=== PATIENT | female | born 1995 | race Caucasian/White ===

== ENCOUNTER → 2020-12-14 10:55 | Outpatient (CLI) | payer OTHER, SELFPAY ==
--- NOTE | ~2020-12-14 | MR_ITS ---
EXAMINATION: MR knee LT wo con DATE: 12/14/2020 11:43 INDICATION: Generalized left knee pain, swelling and clicking. TECHNIQUE: Magnetic resonance imaging (MRI) of the left knee was performed without intravenous contra st. Sequences included coronal PD-weighted FSE, coronal PD-weighted FS FSE, sagittal T2-weighted FSE , sagittal PD-weighted FS FSE and axial PD weighted fat saturated FSE. COMPARISON: Knee radiographs dated 10/25/2020 FINDINGS: Medial compartment: Medial meniscus is normal. Articular cartilage is normal. Lateral compartment: Lateral meniscus is normal. Deep chondral fissuring with underlying mild cortical irregularity and mi nimal subarticular edema at the axillary anterior to central weightbearing lateral femoral condyle. Patellofemoral compartment: Small region of deep chondral ulceration with underlying subarticular edema at the superolateral leon in of the lateral trochlea. Partial-thickness chondral fissuring with additional minimal subarticular edema along the inferior rim of the lateral patellar facet. Ligaments and tendons: Anterior and posterior cruciate ligaments are normal. The medial collateral ligament and fibular susana ateral ligament complex are normal. The extensor mechanism is normal. The visualized medial and later al hamstring tendons as well as the iliotibial band are normal. Fluid: Physiologic amount of fluid in the joint space. No loose osteochondral bodies identified. Small Maddox 's cyst. Osseous/other: Normal marrow signal aside from a previous noted small regions of mild degenerative subchondral stern es. No fracture or pathologic marrow replacing process. There is scarring at the medial and lateral a spects of Hoffa's fat pad suggesting prior arthroscopy. There is scarring of indeterminate etiology a t the patellar side of the lateral patellofemoral retinaculum which appears focally thickened without increased signal or edema to suggest acute injury. IMPRESSION: 1. 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 Reviewed, dictated and finalized at location A. IMPRESSION: 1. Mild osteoarthritis with small regions of high-grade chondromalacia in the l ateral and patellofemoral compartments.
== END ==
PROVIDERS: Visit Provider Orthopaedic Surgery
DX: M25.562 Pain in left knee (principal); M17.12 Unilateral primary osteoarthritis, left knee; M94.262 Chondromalacia, left knee
CPT/HCPCS: 73721

== ENCOUNTER 2021-01-09 02:22 | Day surgery (SDC) | payer OTHER, SELFPAY ==
[2021-01-06 13:27] VITALS: BMI 23.6
--- NOTE | 2021-01-06 15:53 | WPDANESEPPF ---
Anes - Initial Pre Proc Eval Procedure: Operation Date: 01/09/21 07:30 Proposed Procedures p Left Knee Arthroscopy, Partial Knee Synovectomy - Odin Herrera MD Date/Time: 01/06/21 15:53 Surgeon: Odin Herrera MD Pre Op Diagnosis: left anterior knee impingement Patient Data Age: 25 Gender: F Height: 1.75 m Weight: 72.6 kg Allergies Allergy/AdvReac Type Severity Reaction Status Date / Time No Known Allergies Allergy Verified 01/09/21 06:27 Home Medications Medication Instructions Recorded Confirmed Type No Home Medications 01/06/21 01/06/21 History Patient hx anesthesia problems: none Family hx anesthesia problems: none PMFSH Surgical History Surgical History H/O arthroscopy of left knee left knee, June 2018, Dr. Herrera Family History Family History Father Diabetes mellitus Hypertension Social History Social History Smoking status: Never smoker Alcohol intake: current Alcohol use details: ONE DRINK PER MONTH Living arrangements: with family Additional occupation/education comments: [employer], pharmacy Gender identity (if verbalized by the patient): Female Spiritual care concerns: No Anes - Eval Final PreProcedure Day of Procedure 01/06/21 15:53 Patient weight: normal Heart: regular rate and rhythm Lungs: clear to auscultation and normal air movement Airway: Mallampati scale class II Neurological: alert and oriented Last oral intake: >/= 8 hours ASA classification: II Emergent: no Anesthetic plan: proceed Anesthesia type and monitoring: general LMA and standard monitoring Informed Consent: The patient's anesthetic plan and its attendant risks and benefits were discussed with the patient/family/POA. Questions were solicited and answers provided to the satisfaction of the patient/family/POA.
[2021-01-09] VITALS (9 sets, daily range): BP systolic 106–122; BP diastolic 61–78; PULSE 70–98; RESP 12–20; TEMP 36.7–36.9; O2SAT 99–100
[2021-01-09] MEDS: ACETAMINOPHEN 500 MG TABLET 1000 MG PO (06:41)
[2021-01-09] MEDS: LACTATED RINGERS 1,000 ML 30 ML IV CONT (06:47)
[2021-01-09] MEDS: KETOROLAC 15 MG/ML VIAL (*BKC) IV PUSH (07:04)
--- NOTE | 2021-01-09 07:20 | WPDHPUPDATE1 ---
History and Physical Update Update Date/Time: 01/09/21 07:20 History and Physical has been reviewed, including an updated exam of the patient. There are NO changes in the patient's condition. Risks, benefits, and alternatives have been discussed and questions answered. Patient agrees to proceed with procedure.
[2021-01-09] MEDS: ceFAZolin 2 GM/D5W 50 ML 2 GM/50 ML BAG IVPB (07:24)
[2021-01-09] MEDS: TRANEXAMIC ACID 1,000 MG/10 ML AMPUL 1000 MG TOPICAL (08:20)
--- NOTE | 2021-01-09 08:40 | W.PM.PROC2 ---
Procedure Note - Detailed Date of Procedure 01/09/21 Pre-op Diagnosis left anterior knee impingement Post-op Diagnosis same Procedure Performed Left knee arthroscopy with extensive synovectomy and scar tissue debridement Surgeon Odin Herrera MD Indications See H&P Description of Procedure The patient was identified and proper site identified. She was taken to the operating room and transferred to the OR table placing her supine taking care to pad the torso and extremities. After general anesthetic induction and intubation, a nonsterile tourniquet was placed high on the left thigh but was not use. The left lower extremity was positioned, prepped and draped in usual sterile fashion. 10 cc of 1% lidocaine was injected into the subcutaneous tissue in the area of the portals at start of the procedure, and an additional 10 at the end. The portals were established and the arthroscopy was carried out. The gutters and pouch were clear. Medial and lateral compartments showed excellent condition of meniscal and articular cartilage. Anterior posterior cruciate ligaments were in continuity. Undersurface of the patella had extensive grade 3 changes particularly distally. There is a little bit of fraying in the femoral trochlea. There was a large rind of scar tissue at the inferolateral aspect of the patella corresponding to where her symptoms were. There is also an abraded area in the soft tissue at the proximal-most aspect of left side of the femoral trochlea. All of the scar tissue and redundant synovium in those areas was debrided with a shaver and then ArthroCare Wand used for hemostasis. The knee was flushed with a copious amount of arthroscopic fluid and equipment was removed. The knee was injected intra-articularly with 1 gram of tranexamic acid. Portals were closed with three O nylon suture and a sterile dressing was applied. She tolerated the procedure well, was awakened, extubated and taken to recovery area in stable condition. There were no known intraoperative complications. Estimated blood loss was negligible. She received perioperative antibiotics. Tourniquet Time 0 Drains No Packing No Pathology none sent Complications No immediate complications Condition stable Disposition PACU
[2021-01-09] MEDS: oxyCODONE HCL (*CRX) 5 MG TAB IR PO (09:42)
== END 2021-01-09 10:14 | disposition home or self-care (01) ==
PROVIDERS: Visit Provider Orthopaedic Surgery
PROC: (CPT 29870; principal; 2021-01-09 07:30)
DX: M25.862 Other specified joint disorders, left knee (principal)
CPT/HCPCS: 29877; A9270; J0690; J1100; J1885; J2250; J2405; J2704; J3010; J7120

== ENCOUNTER 2021-08-04 13:05 | Outpatient (CLI) | payer BC, SELFPAY ==
--- NOTE | ~2021-08-04 | MR_ITS ---
EXAMINATION: MR knee LT w con DATE: 08/04/2021 14:30 INDICATION: Left knee pain TECHNIQUE: Magnetic resonance imaging (MRI) arthrogram of the left knee was performed with intra-cooper cular but without intravenous contrast. Details of the intra-articular contrast injection have been d ictated separately. Sequences included coronal T1-weighted FS FSE, coronal PD-weighted FS FSE, sagitt al T2-weighted FSE, sagittal T1-weighted FS FSE, sagittal PD-weighted FSE, axial T1-weighted FS FSE a nd axial PD weighted fat saturated FSE. COMPARISON: Left knee radiographs dated 07/24/2021 FINDINGS: Medial compartment: Medial meniscus is normal. Articular cartilage is normal. Lateral compartment: Lateral meniscus is normal. Small region of deep chondral fissuring with subtle underlying cortical i rregularity with minimal edema-like subarticular marrow signal change at the junction of the anterior to central weightbearing lateral femoral condyle. Remaining articular cartilage is normal. Patellofemoral compartment: There is a partial-thickness chondral flap tear arising along the articular surface at the central po rtion of the medial patellar facet. The tear plane extends 12 mm craniocaudally and propagates 6-7 mm peripherally towards the medial margin of the medial patellar facet. The chondral flap involves appr oximately one third of the cartilage thickness. Trochlear cartilage is normal. Ligaments and tendons: Anterior and posterior cruciate ligaments are normal. The medial collateral ligament and fibular susana ateral ligament complex are normal. The extensor mechanism is normal. The visualized medial and later al hamstring tendons as well as the iliotibial band are normal. Fluid: No loose osteochondral bodies identified. Contrast extends into a small Maddox's cyst which measures 4 .4 cm craniocaudally and 2.0 x 1.1 cm in maximal orthogonal dimensions. There is a small amount of co ntrast in the deep suprapatellar fat pad likely representing small amount extra articular extravasati on at the site of the injection. Osseous/other: Approximately 1.2 cm lateral patellar subluxation. Couple small low signal intensity bone islands at the lateral condylar and lateral supra trochlear distal femur. No fracture or pathologic marrow repla cing process. IMPRESSION: 1. 12 x 6 mm partial-thickness chondral flap involving approximately one third of the cartilage thick ness at the medial patellar facet. 2. Additional small region of high-grade chondromalacia at the junction of the anterior to central we ightbearing lateral femoral condyle. 3. Small Maddox's cyst. Reviewed, dictated and finalized at location B. IMPRESSION: 1. 12 x 6 mm partial-thickness chondral flap involving approximately one third of the cartilage thickness at the medial patellar facet. 2. Additional small region of high-grade chondromalacia at the junction of the anterior to central weightbearing lateral femoral condyle. 3. Small Maddox's cyst.
--- NOTE | ~2021-08-04 | XR_ITS ---
EXAMINATION: XR fl inj knee LT for MR/CT DATE: 08/04/2021 14:13 INDICATION: Left knee pain TECHNIQUE: A time-out was performed to verify the patient's name, date of , and procedure to b e performed. The procedure including the risks, benefits, and alternatives was discussed with the pat ient. Risks discussed included bleeding and infection. The patient understood the risks and agreed to proceed. The skin overlying the lateral side of the patellofemoral articulation of the left knee bishnu int was prepped and draped in usual sterile fashion. Anesthetic was administered with 1% lidocaine s ubcutaneously. A 22 G needle was advanced under fluoroscopic guidance into the joint. Injection of 1 mL of Omnipaque 240 confirmed intra-articular position of the needle. Subsequently, injectate cons isting of 36 mL of 5:3:2 mixture of sterile saline:Omnipaque 240:1% lidocaine mixed 200:1 with 529 mg /mL Multihance gadolinium contrast was injected with intra-articular administration confirmed with in termittent fluoroscopy. The needle was removed and the entry site was cleaned and dressed. There wer e no immediate complications. Fluoroscopy exposure time was 0.2 minutes. The total number of images w as 6. FINDINGS: Real-time fluoroscopy demonstrates the needle in the left knee joint. There is extravasatio n of a minimal amount of contrast into the suprapatellar fat pad at the site of injection. IMPRESSION: 1. Successful left knee joint injection of a dilute gadolinium contrast mixture for subsequent MRI ar throgram which will be dictated separately. Reviewed, dictated and finalized at location B. IMPRESSION: 1. Successful left knee joint injection of a dilute gadolinium contrast mixture for subsequent MRI arthrogram which will be dictated separately.
== END 2021-08-04 13:06 ==
PROVIDERS: Visit Provider Nurse Practitioner
DX: M25.562 Pain in left knee (principal)
CPT/HCPCS: 20610; 73722; 77002; A9577; Q9966